=== PATIENT | female | born 1995 | race Caucasian/White ===

== ENCOUNTER 2016-10-17 20:06 | Emergency (ER) | payer BC ==
[2016-10-17 22:36] LABS: HEMATOCRIT 37.8 % (36.0-47.0); HEMOGLOBIN 12.9 g/dL (12.0-15.5); HGB HCT DIFFERENCE 0.9; MEAN CORPUSCULAR HEMOGLOBIN 28.5 pg (27.0-33.4); MEAN CORPUSCULAR HGB CONC 34.2 g/dL (32.0-36.0); MEAN CORPUSCULAR VOLUME 83 fl (80-97); RED BLOOD COUNT 4.54 10^6/uL (3.72-5.28); RED CELL DISTRIBUTION WIDTH 14.4 % (11.5-14.0); WHITE BLOOD COUNT 13.1 10^3/uL (4.0-10.5)
--- NOTE | 2016-10-17 23:40 | ER Document Report ---
ED General - General Chief Complaint: Vag Bleeding, +preg <12wks Stated Complaint: VAGINAL BLEEDING,ABDOMINAL CRAMPING Notes: Patient is a 21-year-old female at approximately 6 weeks by last menstrual period who presents with vaginal bleeding and some abdominal cramping. States her symptoms started in the past 48 hours but have been unchanged since onset. Does describe the pain as an intermittent, cramping lower abdominal pain with intermittent radiation to her bilateral low back. States that she's had some small amount of vaginal bleeding which is described mostly as being a dark brown blood that is only present after she wipes. She has not seen her OB regarding today's concerns. She is not having vomiting, diarrhea, dysuria, or any additional symptoms. Nothing improves or worsens her discomfort. No history of similar symptoms during this . - Related Data Allergies/Adverse Reactions: No Known Allergies Allergy (Unverified 10/17/16 20:09) Past Medical History - General Information source: Patient Last Menstrual Period: 09/02/2016 - Social History Smoking Status: Never Smoker Frequency of alcohol use: None Drug Abuse: None Lives with: Spouse/Significant other Family History: Reviewed & Not Pertinent Renal/ Medical History: Denies: Hx Peritoneal Dialysis - Immunizations Hx Diphtheria, Pertussis, Tetanus Vaccination: Yes Review of Systems - Review of Systems Notes: Constitutional: Negative for fever. HENT: Negative for sore throat. Eyes: Negative for visual changes. Cardiovascular: Negative for chest pain. Respiratory: Negative for shortness of breath. Gastrointestinal: Positive for abdominal pain, negative for vomiting or diarrhea. Genitourinary: Negative for dysuria. Positive for vaginal bleeding Musculoskeletal: Negative for back pain. Skin: Negative for rash. Neurological: Negative for headaches, weakness or numbness. 10 point ROS negative except as marked above and in HPI. Physical Exam - Vital signs Vitals: Temp Pulse Resp BP Pulse Ox 98.8 F 97 18 126/81 H 100 10/17/16 20:09 10/17/16 20:09 10/17/16 20:09 10/17/16 20:09 10/17/16 20:09 Interpretation: Normal Notes: PHYSICAL EXAMINATION: GENERAL: Well-appearing, well-nourished and in no acute distress. HEAD: Atraumatic, normocephalic. EYES: Pupils equal round and reactive to light, extraocular movements intact, sclera anicteric, conjunctiva are normal. ENT: nares patent, oropharynx clear without exudates. Moist mucous membranes. NECK: Normal range of motion, supple without lymphadenopathy LUNGS: Breath sounds clear to auscultation bilaterally and equal. No wheezes rales or rhonchi. HEART: Regular rate and rhythm without murmurs ABDOMEN: Soft, nontender, normoactive bowel sounds. No guarding, no rebound. No masses appreciated. EXTREMITIES: Normal range of motion, no pitting or edema. No cyanosis. NEUROLOGICAL: No focal neurological deficits. Moves all extremities spontaneously and on command. PSYCH: Normal mood, normal affect. SKIN: Warm, Dry, normal turgor, no rashes or lesions noted. Course - Re-evaluation Re-evalutation: 10/17/16 23:39 Patient presents with a mild amount of vaginal bleeding in the setting of an early first trimester . visualized on transvaginal ultrasound and found to be 6 weeks. No active bleeding at time of presentation. She is Rh negative and RhoGAM has been administered. Patient's abdominal exam is otherwise benign without any focal tenderness. I do not suspect an acute appendicitis, pyelonephritis, cystitis, or bowel obstruction. At this time will discharge with return precautions and follow-up recommendations. Verbal discharge instructions given a the bedside and opportunity for questions given. Medication warnings reviewed. Patient is in agreement with this plan and has verbalized understanding of return precautions and the need for primary care follow-up in the next 24-72 hours. - Vital Signs Vital signs: Temp Pulse Resp BP Pulse Ox 98.4 F 83 18 108/65 99 10/18/16 00:51 10/18/16 00:51 10/18/16 00:51 10/18/16 00:51 10/18/16 00:51 - Laboratory Result Diagrams: 10/17/16 22:14 Laboratory results interpreted by me: 10/17/16 10/17/16 22:14 22:14 WBC 13.1 H RDW 14.4 H Beta HCG, Quant 12304.00 H - Diagnostic Test Radiology reviewed: Reports reviewed Discharge - Discharge Clinical Impression: Vaginal bleeding in Qualifiers: Trimester: first trimester Qualified Code(s): O46.91 - Antepartum hemorrhage, unspecified, first trimester Condition: Good Disposition: HOME, SELF-CARE Additional Instructions: Your ultrasound today shows a living intrauterine . Bleeding during earlier is common. Many pregnancies with this complication can go on to become normal pregnancies. Please follow closely with your primary care OB/ PHYSICIAN SCIENTIST. Please return if you develop severe abdominal pain, bleeding that goes through more than 2 pads for more than 2 hours, pass out, or have any other symptoms that are concerning to you. Please follow-up closely with your OBGYN regarding todays visit.
[2016-10-18 00:53] VITALS: BP 108/65
== END 2016-10-18 01:05 | disposition home or self-care (01) ==
LOC: ER 20:06
DX: O20.9 Hemorrhage in early pregnancy, unspecified (principal); O36.0910 Maternal care for other rhesus isoimmunization, first trimester, not applicable or unspecified; O26.891 Other specified pregnancy related conditions, first trimester; R10.30 Lower abdominal pain, unspecified; Z3A.01 Less than 8 weeks gestation of pregnancy
CPT/HCPCS: 99284; 96374; 86900; 86901; 36415; 86850; 84702; 85027; 76817; J2790